=== PATIENT | female | born 2000 | race Caucasian/White ===

== ENCOUNTER 2020-02-02 13:42 | Outpatient (CLI) | payer MEDICAID ==
[~2020-02-02] VITALS: Ht 172.7 cm; Wt 108.8 kg
[2020-02-02 13:40] VITALS: BP 127/68
--- NOTE | 2020-02-02 13:40 | NUR ---
GLORIA GOMEZ presented to unit via wheel chair from home, accompanied by friend , with c/o CONTRACTIONS. GLORIA GOMEZ weighed, gowned, voided, and to bed. EFHM and TOCO applied, VS taken. GLORIA GOMEZ oriented to bed controls, call light, TV, heat, and A/C controls.
--- NOTE | 2020-02-02 13:40 | NUR ---
Prior to pt arriving to unit, pt's friend called the unit asking which provider was program control analyst today. The friend said "she has been going to a dr in [place] and has been wanting to switch but hasn't yet". This RN asked how many weeks the pt was and who the dr was. Friend said "[address] Cabrera at [facility]". The friend stated that the pt "Is in labor". Pt was instructed to return to established primary care provider.
--- NOTE | 2020-02-02 13:45 | NUR ---
Pt stated "We dont know if my water broke. Im having contractions." When asked about primary physician the pt state Dr. Frye at [facility]" the friend then stated that she told staff the wrong dr over the phone. The pt stated that she had seen Dr. Guy at [facility] once, but then went to [facility] because "they wouldnt give me an OB". Pt stated that her last appointment was on 01/25 to "turn the baby because it was transverse". Pt stated that she was supposed to have an appointment today but "couldn't make it". When asked why she didnt make it, her friend stated "her alarm didnt go off". Pt had originally stated that her gestation was 39 and 4 days, but she said her due date was 02/11, which makes her 38 weeks and 4 days.
--- NOTE | 2020-02-02 14:00 | NUR ---
Amnio test competed, came back negative for amniotic fluid. SVE per Deondre Mcmillan RN. Pt cervix closed. Pt stated "well my family has a history of not dilating"
[2020-02-02 14:08] VITALS: BP 127/68
[2020-02-02 14:18] LABS: BILIRUBIN,URINE NEGATIVE (NEGATIVE); CLARITY,URINE CLEAR; COLOR,URINE YELLOW; GLUCOSE, URINE (UA) NEGATIVE (NEGATIVE); KETONES,URINE NEGATIVE (NEGATIVE); LEUKOCYTE ESTERASE ,URINE TRACE (NEGATIVE); NITRITE,URINE NEGATIVE (NEGATIVE); PH,URINE 6.5 (5-9); PROTEIN,URINE NEGATIVE (NEGATIVE)
[2020-02-02 14:25] LABS: BACTERIA,URINE FEW /HPF; RBC,URINE 0-2 /HPF
[2020-02-02 14:26] LABS: AMORPHOUS SEDIMENT,UR LARGE AMOR URATES /LPF; CALCIUM OXALATE CRYSTALS,UR MODERATE /LPF
[2020-02-02 14:36] LABS: AMPHETAMINE SCREEN, URINE NEGATIVE (NEGATIVE); BARBITURATE SCREEN URINE NEGATIVE (NEGATIVE); BENZODIAZEPINES SCREEN URINE NEGATIVE (NEGATIVE); CANNABINOID SCREEN, URINE NEGATIVE (NEGATIVE); COCAINE SCREEN URINE NEGATIVE (NEGATIVE); METHADONE STAT NEGATIVE (NEGATIVE); METHAMPHETAMINE SCREEN URINE S NEGATIVE (NEGATIVE); OPIATE SCREEN URINE NEGATIVE (NEGATIVE); OXYCODONE STAT NEGATIVE (NEGATIVE); PROPOXYPHENE STAT NEGATIVE (NEGATIVE); TRICYCLIC ANTIDEPRESSANTS SCRE NEGATIVE (NEGATIVE)
--- NOTE | 2020-02-02 14:45 | NUR ---
Discharge instructions given to pt. Pt states "I know all of that information". PHS given to pt. Pt signed that discharge instructions were given.
--- NOTE | 2020-02-02 14:55 | NUR ---
Pt discharged from unit in stable condition via ambulatory, accompanied by friend and belongings.
--- NOTE | 2020-02-03 08:33 | Physician Query-Final Dx ---
TOYIN LAZARO 02/03/20 0833: Clinic Account Progress/Dx Physician Query: Please give diagnosis Please give # weeks gestation Date of Service Feb 02, 2020 at 13:42 JOSHUA SHIN DO 02/03/20 0837: Clinic Account Progress/Dx DIAGNOSIS: Diagnosis 38 week IUP No local physician Irregular contractions TOYIN LAZARO Feb 03, 2020 08:33 JOSHUA SHIN DO Feb 03, 2020 08:37
== END 2020-02-02 14:55 ==
LOC: WSo 13:42 → LDRP 13:42 → WSo 14:55
PROVIDERS: ATTEND Obstetrics & Gynecology
DX: O62.4 Hypertonic, incoordinate, and prolonged uterine contractions (principal); Z3A.38 38 weeks gestation of pregnancy
CPT/HCPCS: 80306; 81000; 87088; 99213